=== PATIENT | male | born 1945 | race Caucasian/White ===

== ENCOUNTER 2025-06-07 21:00 | Emergency (ER) | payer MEDICARE, OTHER ==
[~2025-06-07] VITALS: Ht 177.8 cm; Wt 81.6 kg
[2025-06-07] MEDS ORDERED: LIDOCAINE 1%-EPI 1:100,000 20 ML VIAL ONE (23:47)
[2025-06-08 00:43] VITALS: BP 169/74; TEMP 98.7; O2SAT 98
== END 2025-06-08 00:44 | disposition home or self-care (01) ==
LOC: ER 21:04
DX: S01.81XA Laceration without foreign body of other part of head, initial encounter (principal); I10 Essential (primary) hypertension; G20.A1 Parkinson's disease without dyskinesia, without mention of fluctuations; W06.XXXA Fall from bed, initial encounter; Y93.89 Activity, other specified; Y92.89 Other specified places as the place of occurrence of the external cause; Y99.9 Unspecified external cause status
CPT/HCPCS: 12014; 70450; 99284; J3490